=== PATIENT | female | born 1980 | race Caucasian/White ===

== ENCOUNTER 2019-02-02 16:21 | Emergency (ER) | payer OTHER ==
[~2019-02-02] VITALS: Ht 162.6 cm; Wt 95.3 kg
[2019-02-02] MEDS ORDERED: GLUCOPHAGE XR750 MG PO (16:30)
[2019-02-02] MEDS ORDERED: NORFLEX100 MG PO (17:07)
[2019-02-02] MEDS ORDERED: MOBIC7.5 MG PO (17:07)
[2019-02-02 18:54] VITALS: BP 140/79
== END 2019-02-02 18:55 | disposition home or self-care (01) ==
LOC: ER 16:21
DX: S39.012A Strain of muscle, fascia and tendon of lower back, initial encounter (principal); Z88.1 Allergy status to other antibiotic agents; Z88.0 Allergy status to penicillin; Z91.018 Allergy to other foods; X58.XXXA Exposure to other specified factors, initial encounter; Y92.89 Other specified places as the place of occurrence of the external cause; Y93.89 Activity, other specified; Y99.8 Other external cause status

== ENCOUNTER → 2019-02-07 | Outpatient (CLI) | payer OTHER ==
[~2019-02-07] MED LIST: GLUCOPHAGE XR750 MG PO; MOBIC7.5 MG PO; NORFLEX100 MG PO
== END ==
LOC: RAD 16:07
DX: M53.3 Sacrococcygeal disorders, not elsewhere classified (principal); M43.8X6 Other specified deforming dorsopathies, lumbar region; Z88.8 Allergy status to other drugs, medicaments and biological substances; Z88.0 Allergy status to penicillin

== ENCOUNTER → 2019-03-16 | Outpatient (CLI) | payer OTHER ==
[~2019-03-16] MED LIST changes: +ALEVE220 M1 PO; +EPIPEN0.3 MG/0.1 IM; +VENTOLIN HFA INH8 GM INH; +ZANAFLEX4 M2 PO
[2019-03-16 10:21] LABS: CREATININE 0.8 mg/dL (0.6-1.0)
== END ==
LOC: MRI 03-14 11:43
PROVIDERS: Nurse Practitioner
DX: M47.814 Spondylosis without myelopathy or radiculopathy, thoracic region (principal); M51.26 Other intervertebral disc displacement, lumbar region; M48.061 Spinal stenosis, lumbar region without neurogenic claudication; M51.27 Other intervertebral disc displacement, lumbosacral region

== ENCOUNTER → 2019-03-23 | Outpatient (CLI) | payer OTHER ==
[~2019-03-23] VITALS: Ht 162.6 cm; Wt 102.1 kg
--- NOTE | ~2019-03-23 | HPC ---
[address] [address] PAIN MANAGEMENT CONSULTATION Name: JEFFREY GUEVARAELAYNE Ramy [facility] [id number] Admission: 03/23/19 Attend Phys: Mohinder Seaman DO Discharge: Date of : 84 Report #: [id number] THIS REPORT FOR: //name// CC: Mohinder WHITTINGTON DATE OF SERVICE: 03/23/2019 REFERRING PHYSICIAN: PK Patino. CHIEF COMPLAINT: Low back pain and right lower extremity pain with paresthesias. HISTORY OF PRESENT ILLNESS: As you know, the patient is a pleasant 39-year-old female, who reports acute onset of low back pain and right lower extremity pain with paresthesias that began 02/04/2019. The patient states she was in the process of assisting a patient during her normal work hours and sustained an injury to the right back and right lower extremity. She has been evaluated by workmen's compensation physicians and ultimately sent to physical therapy. The patient has been in physical therapy since 02/07/2019, but has not noted much in the way of improvement in pain. She has recently undergone an MRI of the lumbar spine per the request of the referring nurse practitioner, which showed some mild changes in the lumbar area. She was sent to our clinic to trial a lumbar epidural injection under fluoroscopic guidance to determine if her symptoms would improve with this procedure. The patient reports today that her pain is continuous with intermittent exacerbations that are transient in nature. She describes the pain as shooting, aching, pulling, sharp, stabbing, and tender, places the current pain score 5/10, daily average at 5-6/10, worst pain has been as 10/10. The patient states that "walking too much or sitting too long exacerbate symptoms" and bending and lying down tends to improve pain. She has been referred to our service to discuss treatment options for suspected lumbar radiculopathy. PAST MEDICAL HISTORY: 1. Diabetes mellitus type 2. 2. Asthma. 3. Hypertension. PAST SURGICAL HISTORY: section x 2, gallbladder laparoscopic procedure, appendectomy, and gastric bypass. SOCIAL HISTORY: The patient denies tobacco, alcohol, IV, or illicit drug use. She is a director of nursing. She has not been working since her injury of 02/04/2019. She is under workmen's compensation and unaccompanied today. [address] [address] PAIN MANAGEMENT CONSULTATION Name: ELAYNE BULL Room #: REG Herminio Sanches#: [id number] Admission: 03/23/19 Attend Phys: Mohinder Seaman DO Discharge: Date of : 84 Report #: [id number] REVIEW OF SYSTEMS: Positive for headaches, wearing corrective eyewear, asthma, wheezing, numbness and tingling sensations from the back into the right leg, and diabetes mellitus type 2. All other review of systems negative per 12-point review of systems other than those listed in history of present illness. Pain impact score, 31/70, indicating moderate interference of daily activities secondary to pain. ALLERGIES: PENICILLIN, CEPHALEXIN, and AMOXICILLIN. CURRENT MEDICATIONS: Metformin 750 mg once a day, tizanidine 4 mg p.r.n., albuterol 2 puffs q. 4 hours p.r.n., and naproxen 220 mg 3 times a day. IMAGING: MRI, lumbar spine, obtained on 03/16/2019 shows T12-L1, L1-L2, L2-L3, L3-L4 and shows no central canal stenosis, no neural foraminal stenosis, and only mild posterior degenerative changes. There are no lateralizing features. At L4-L5, there is a general disk bulge, which is slightly eccentric towards the left. There is mild posterior facet degenerative changes, mild left lateral recess narrowing, no central canal stenosis, and no significant neural foraminal stenosis. At L5-S1, generalized disk bulge, no significant central canal neural foraminal stenosis, and minimal left-sided neural foraminal narrowing. PHYSICAL EXAMINATION: VITAL SIGNS: Blood pressure 130/83, pulse 77, and respiratory rate 16 and unlabored. The patient is 98% on room air. Height 5 feet 4 inches tall and weight 225 pounds. BMI calculated 38.6. GENERAL: Well-developed, well-nourished, well-hydrated, and exogenously obese 39-year-old female, appearing stated age. Pain is rated anywhere from 5-6/10. HEENT: Normocephalic and atraumatic. Pupils are equal, round, and reactive to light. Extraocular muscles are intact. Sclerae nonicteric without injection. NEUROLOGIC: Cranial nerves 2-12 are grossly intact. Speech fluent. The patient is deemed a good historian. LUNGS: Clear. No wheeze, rhonchi, or rales. CARDIOVASCULAR: Regular. No appreciable gallop and no rub. ABDOMEN: Soft, obese, and normoactive bowel sounds. EXTREMITIES: Show no clubbing, no cyanosis, and no edema. MUSCULOSKELETAL: Deep tendon reflexes are equal and symmetrical in lower extremities at patella and Achilles. Ankle clonus is negative. Babinski is negative. There is some palpatory tenderness noted over the paraspinal musculature of lower lumbar spine. No spinous process tenderness. Seated straight leg raising is negative. Supine straight leg raising is negative. Petra's test is negative. Modified Gaenslen's is positive for axial low back pain. Gait, mildly antalgic, favoring right lower extremity over left. ASSESSMENT: 1. Suspected lumbar radiculopathy. [address] [place] [address] PAIN MANAGEMENT CONSULTATION Name: ELAYNE BULL Room #: [facility].#: [id number] Admission: 03/23/19 Attend Phys: Mohinder Seaman DO Discharge: Date of : 84 Report #: [id number] 2. Chronic low back pain. PLAN: The patient has been referred to our service by her workmen's compensation to evaluate her to undergo a lumbar epidural injection under fluoroscopic guidance to address suspected lumbar radiculopathy. The patient has been undergoing physical therapy since 02/07/2019, but has not noticed much in the way of improvement in symptoms. She has been trialed on conservative medication, starting initially with [id number]-[id number] medications and then moving towards the prescription medications, but is noticing no benefit with these medications. A recent MRI shows no significant lateralizing features in the lumbar area, some generalized disk bulge typical for her age and weight noted at the L4-L5 and L5-S1 level. There is no nerve root impingement affecting the right side. We did discuss the requested epidural injection today in hopes of improving lumbar radicular suspected symptoms with radiation to the right side. We discussed the risks and the benefits of a lumbar epidural injection. These risks include, but are not necessarily limited to, bleeding, bruising, infection, worsening pain, no relief of pain, also risk of temporary or permanent muscle weakness, temporary or permanent nerve damage, possible paralysis, post-dural puncture headache, and . The patient states understood and wished to proceed. 2. No medication changes made at today's visit. The patient will continue current medical therapy as previously prescribed. 3. We will see the patient back in followup visit on an as needed basis for a possible next in the series of lumbar epidural injections. We wish to thank Laura Abraham for the opportunity to see this patient in consultation. We will keep you apprised of response to treatment as we address suspected lumbar radiculopathy. Again, we wish to thank you for the opportunity to see the patient in consultation. PROCEDURE NOTE DESCRIPTION OF PROCEDURE: L5-S1 RIGHT PARAMEDIAN EPIDURAL STEROID INJECTION UNDER FLUOROSCOPIC GUIDANCE: This is the first procedure of the first series that the patient is undergoing. After obtaining written consent, the patient was taken back to the fluoroscopy suite, placed in a prone position with pillow under the abdomen to decrease lumbar lordosis. The skin overlying the lumbosacral area was then prepped and draped in aseptic fashion. The L5-S1 vertebral interspace was then identified by AP fluoroscopy. The skin and subcutaneous tissue overlying the target site of injection was anesthetized with 3 mL 1% lidocaine. A 20-gauge Tuohy needle was then advanced under fluoroscopic guidance towards the epidural space using a right paramedian approach. The epidural space was [address] [address] PAIN MANAGEMENT CONSULTATION Name: ELAYNE BULL Room #: REG MARIANN Sanches#: [id number] Admission: 03/23/19 Attend Phys: Mohinder Seaman DO Discharge: Date of : 84 Report #: [id number] identified using loss of resistance to air technique. After negative aspiration for heme or cerebrospinal fluid, a total of 1 mL of Omnipaque was injected. A lumbar epidurogram was confirmed using both AP and lateral fluoroscopy. After negative aspiration for heme or cerebrospinal fluid, 5 mL of a solution containing 2 mL of 40 mg/mL 80 mg total triamcinolone along with 3 mL of lidocaine 1% was injected in increments. Contrast spread was noted postepidural space. The needle was then retracted approximately half way and needle tract flushed with 1 mL of 1% lidocaine. Needle was then removed. There were no apparent sensory or motor deficits in the lower extremity following the procedure. A sterile bandage was placed over the injection site. The heart rate, pulse, oximetry and blood pressure were continuously monitored after the procedure. There were no apparent complications. The patient tolerated the procedure well and was carefully escorted to the recovery room in stable condition. There were no apparent complications. After meeting discharge criteria, the patient was then discharged home. By: [id number] Mohinder Seaman DO /nt
[2019-03-23 13:03] VITALS: BP 130/83
--- NOTE | 2019-03-23 13:04 | NUR ---
Pain Clinic Assessment: 1. History of Osteoarthritis: NONE History of Rheumatoid Arthritis: NONE 2. Height: 5 ft. 4 in. 162.6 cm. Weight: 225.0 lb. oz. 102.060 kg. Patient's BMI: 38.6 3. Vital Signs: BP: 130/83 Pulse: 77 Resp: 16 Temp: 02 Sat: 98 ECG Mon: 4. Pain Intensity: 5 TODAY DAILY AVG 5-6 5. Fall Risk: Dizziness: N Needs help standing or walking: N Fallen in the last 3 months: N Fall risk comments: 6. Patient on Blood Thinner: None 7. History of Hypertension: Y 8. Opioid Therapy greater than 6 weeks: Opiate Contract Signed: 9. Risk Assessment Tool Provided: LOW 10. Functional Assessment Tool: 11. Recreational Drug Use: Never Drug Type: Tobacco Use: Never Smoker Tobacco Type: Amount or Packs/day: How Many Years: Alcohol Use: No Frequency: Quant:
== END | disposition home or self-care (01) ==
LOC: PAIN 06:54
DX: M54.5 Low back pain (principal); G89.29 Other chronic pain; M79.604 Pain in right leg; I10 Essential (primary) hypertension; E11.9 Type 2 diabetes mellitus without complications; J45.909 Unspecified asthma, uncomplicated; Z98.890 Other specified postprocedural states; Z79.899 Other long term (current) drug therapy; Z98.84 Bariatric surgery status; Z90.49 Acquired absence of other specified parts of digestive tract; Z88.0 Allergy status to penicillin; Z88.8 Allergy status to other drugs, medicaments and biological substances

== ENCOUNTER 2019-04-18 13:18 | Emergency (ER) | payer OTHER ==
[~2019-04-18] VITALS: Ht 162.6 cm; Wt 95.3 kg
[2019-04-18 14:46] LABS: HEMATOCRIT 35.9 % (37.0-47.0); HEMOGLOBIN 11.3 gm/dL (12.0-15.0); MCH 25.3 pg (26.0-34.0); MCHC 31.3 g/dL (28.0-37.0); MCV 80.6 fL (80.0-100.0); PLATELET COUNT 293 thou/uL (150-400); RBC 4.45 mil/uL (4.20-5.00); RDW 15.5 % (10.5-14.5); WBC 6.3 thou/uL (4.0-11.0)
[2019-04-18 14:56] LABS: ANION GAP 9 mmol/L (7-16); BUN 16 mg/dL (7-18); CALCIUM 9.1 mg/dL (8.5-10.1); CHLORIDE 106 mmol/L (98-107); CO2 25 mmol/L (21-32); CREATININE 0.8 mg/dL (0.6-1.0); GLUCOSE 73 mg/dL (74-106); POTASSIUM 3.8 mmol/L (3.5-5.1); SODIUM 140 mmol/L (136-145)
[2019-04-18 15:07] LABS: ALBUMIN 3.4 g/dL (3.4-5.0); SGOT 16 U/L (15-37); SGPT 20 U/L (30-65); TOTAL BILIRUBIN 0.1 mg/dL (<0.1-1.0); TOTAL PROTEIN 7.2 g/dL (6.4-8.2); TROPONIN-I <0.06 ng/mL (<0.06)
[2019-04-18] MEDS ORDERED: TESSALON PERLE100 MG PO (15:16)
[2019-04-18] MEDS ORDERED: CLARITIN-D 121 EAC1 PO (15:16)
[2019-04-18] MEDS ORDERED: IBUPROFEN 800800 M1 PO (15:16)
[2019-04-18 15:21] LABS: ABSOLUTE NEUTROPHILS 4.5 thou/uL (1.4-8.2)
[2019-04-18 15:22] LABS: ANISOCYTOSIS 1+
[2019-04-18 15:27] VITALS: BP 116/84
--- NOTE | 2019-04-22 14:50 | EKG ---
[address] [address] [place] [address] ELECTROCARDIOGRAM REPORT Name: ELAYNE BULL [facility] [id number] Admission: 04/18/19 Attend Phys: Discharge: 04/18/19 Date of : 84 Report #: [id number] THIS REPORT FOR: //name// [facility] ED Test Date: 2019-04-18 Test Time: 14:26:18 Pat Name: ELAYNE JEFFREY GUEVARA Department: Room: Gender: F Web Marketing Assistant: : 1980 Requested By: Misael Akhtar Order Number: [id number] MD: True Ballesteros Measurements Intervals [place] Rate: 85 P: 40 WY: 136 QRS: 29 QRSD: 100 T: 13 QT: 351 QTc: 418 Interpretive Statements Sinus rhythm Baseline wander in lead(s) V5 No previous ECG available for comparison Electronically Signed On 04-22-2019 14:50:13 RESEARCH CLERK by True Ballesteros [email or web address] <ELECTRONICALLY SIGNED> By: True Ballesteros MD 04/22/19 1450 1426 1426 MD TACOS Etienne
== END 2019-04-18 15:29 | disposition home or self-care (01) ==
LOC: ER 13:18
PROVIDERS: Emergency Medicine
DX: J10.1 Influenza due to other identified influenza virus with other respiratory manifestations (principal); Z88.0 Allergy status to penicillin